=== PATIENT | male | born 1960 | race Caucasian/White ===

== ENCOUNTER 2019-07-13 08:16 | Day surgery (SDC) | payer OTHER ==
[~2019-07-13] VITALS: Ht 177.8 cm; Wt 92.3 kg
[~2019-07-13 08:16] MED LIST: Aspir 8181 MG PO; LOSA25 PO; ROSU5 PO; SIMVASTATIN PO; TAMS.4ER PO; UBID10 PO
== END 2019-07-13 10:42 | disposition home or self-care (01) ==
LOC: ORSCSDS 08:16
PROVIDERS: Surgery
PROC: 0DJD8ZZ Inspection of Lower Intestinal Tract, Via Natural or Artificial Opening Endoscopic (ICD-10-PCS; principal; 2019-07-13 10:00)
DX: R19.4 Change in bowel habit (principal); K57.30 Diverticulosis of large intestine without perforation or abscess without bleeding; Z86.010 Personal history of colon polyps; I10 Essential (primary) hypertension; E78.00 Pure hypercholesterolemia, unspecified; Z79.899 Other long term (current) drug therapy
CPT/HCPCS: J2704; J7120

== ENCOUNTER 2025-03-21 07:48 | Day surgery (SDC) | payer OTHER ==
[2025-03-21] VITALS (8 sets, daily range): BP systolic 131–173; BP diastolic 64–88
[~2025-03-21] VITALS: Ht 175.3 cm; Wt 98.1 kg
[~2025-03-21 07:48] MED LIST changes: +BEET ROOT500 MG PO; +CeFAZolin Sodium 2,000 MG in NS 100 ML IV SCH; +LIVALO4 MG PO; +Lactated Ringer's 1,000 ML IV SCH; +METO25ER PO; +REPATHA SU140 MG/1 M SC; +THERA-D2000 UNIT PO
[2025-03-21] MEDS ORDERED: Bupivacaine 0.5% HCl 5 MG/ML 30MLVIAL INJ ONE (07:56)
--- NOTE | 2025-03-21 08:45 | NUR ---
AMBULATORY INTO SDS. PT DENIES PAIN OR SOB. HISTORY AND ALLERGIES REVIEWED. LUNGS CLEAR-SATS>90% ON RA. NPO STATUS CONFIRMED. CHLORHEXIDINE SHOWER AND WIPE X 2. PT BELONGINGS IN BAG BELOW [facility].
[2025-03-21] MEDS ORDERED: Bupivacaine 0.5% HCl 5 MG/ML 30MLVIAL ONE (09:03)
[2025-03-21] MEDS ORDERED: propofoL 20 ML IV ONE (09:16)
[2025-03-21] MEDS ORDERED: FentaNYL Citrate 50 MCG/ML 2 ML Injection ONE (09:17)
[2025-03-21] MEDS ORDERED: Glycopyrrolate 0.2 MG/ML 5ML VIAL ONE (09:28)
[2025-03-21] MEDS ORDERED: Dexamethasone Sod Phos 10 MG/ML 1ML VIAL ONE (09:34)
[2025-03-21] MEDS ORDERED: Ondansetron HCl 2 MG / ML 2ML Vial ONE (09:46)
[2025-03-21] MEDS ORDERED: Lactated Ringer's 1,000 ML IV SCH (09:55)
[2025-03-21] MEDS ORDERED: Ondansetron HCl 2 MG / ML 2ML Vial IV PRN (09:55)
[2025-03-21] MEDS ORDERED: Lidocaine HCl 1% 5 ML SYR INJ ONE (09:55)
[2025-03-21] MEDS ORDERED: HYDROmorphone HCl/Pf 1MG SYR IV PRN (09:55)
[2025-03-21] MEDS ORDERED: Morphine Sulfate 4 MG/1 ML Injection IV PRN (09:55)
[2025-03-21] MEDS ORDERED: Sugammadex Sodium 200 MG/2ML SDV (100 MG/ML) ONE (09:56)
[2025-03-21] MEDS ORDERED: FentaNYL Citrate 50 MCG/ML 2 ML Injection IV PRN (10:00)
--- NOTE | 2025-03-21 11:21 | NUR ---
Patient up to Ambulate independently. Gait steady. Discharge instructions reviewed with patient. Patient verbalizes understanding. Copy given to patient to take home. Dressing to procedure site clean, dry, intact with no visible drainage, swelling, erythema or bruising noted.
== END 2025-03-21 11:25 | disposition home or self-care (01) ==
LOC: ORSCMMR 07:48
PROVIDERS: Surgery
PROC: 0WQF0ZZ Repair Abdominal Wall, Open Approach (ICD-10-PCS; principal; 2025-03-21 09:00)
DX: K42.9 Umbilical hernia without obstruction or gangrene (principal); I25.10 Atherosclerotic heart disease of native coronary artery without angina pectoris; I10 Essential (primary) hypertension; E78.2 Mixed hyperlipidemia; E78.5 Hyperlipidemia, unspecified; E66.9 Obesity, unspecified; Z68.32 Body mass index [BMI] 32.0-32.9, adult; Z79.82 Long term (current) use of aspirin; Z79.899 Other long term (current) drug therapy
CPT/HCPCS: J0690; J1100; J2405; J2704; J3010; J7120

== ENCOUNTER 2025-08-17 13:07 | Day surgery (SDC) | payer OTHER ==
[~2025-08-17] VITALS: Ht 177.8 cm; Wt 95.7 kg
[~2025-08-17 13:07] MED LIST changes: -CeFAZolin Sodium 2,000 MG in NS 100 ML IV SCH; -Lactated Ringer's 1,000 ML IV SCH; +NS 500 ML IV ONE
[2025-08-17] MEDS ORDERED: NS 500 ML IV ONE (13:38)
[2025-08-17] MEDS ORDERED: OMEP20ER PO (13:50)
[2025-08-17] MEDS ORDERED: Midazolam HCl 1MG / ML 2ML Vial ONE (13:57)
[2025-08-17] MEDS ORDERED: FentaNYL Citrate 50 MCG/ML 2 ML Injection ONE (13:57)
[2025-08-17] MEDS ORDERED: Ondansetron HCl 2 MG / ML 2ML Vial ONE (14:04)
--- NOTE | 2025-08-17 14:44 | NUR ---
08/17/25 1444 Luciana Rhodes TIME OUT PERFORMED AT BEDSIDE WITH DR LAU AT 1425. 10ML 1% LIDOCAINE WITH EPI [id number] INJECTED BY DR LAU INTO R HAND AT 1426. PATIENT TOLERATED PROCEDURE WELL.
[2025-08-17 15:36] VITALS: BP 137/77
== END 2025-08-17 15:35 | disposition home or self-care (01) ==
LOC: ORSCSDS 13:07
PROVIDERS: Orthopaedic Surgery
PROC: 01N54ZZ Release Median Nerve, Percutaneous Endoscopic Approach (ICD-10-PCS; principal; 2025-08-17 14:30)
DX: G56.01 Carpal tunnel syndrome, right upper limb (principal); I10 Essential (primary) hypertension; I25.10 Atherosclerotic heart disease of native coronary artery without angina pectoris; E78.2 Mixed hyperlipidemia; K75.81 Nonalcoholic steatohepatitis (NASH); K21.9 Gastro-esophageal reflux disease without esophagitis; Z87.891 Personal history of nicotine dependence; Z79.82 Long term (current) use of aspirin; Z79.899 Other long term (current) drug therapy
CPT/HCPCS: J2250; J2405; J2704; J3010; J7040